=== PATIENT | female | born 1955 | race Caucasian/White ===

== ENCOUNTER 2017-12-17 01:33 | Day surgery (SDC) | payer OTHER ==
[2017-12-17] VITALS (8 sets, daily range): BP systolic 89–125; BP diastolic 53–82
[~2017-12-17] VITALS: Ht 162.6 cm; Wt 73.5 kg
[~2017-12-17 01:33] MED LIST: ALL-DPT PO; ASCO100T PO; BIRTH CONTROL; CALC600T72 PO; GLUC1TAB13 PO; MOME17SP9 NS; MULT1CAP41 PO
[2017-12-17] MEDS ORDERED: PROPOFOL EMUL(*) 10MG/ML 20 ML 40 ML ONE (07:26)
[2017-12-17] MEDS ORDERED: MIDAZOLAM 2 MG/2 ML VIAL IVP ONE (12:00)
[2017-12-17] MEDS ORDERED: NORMOSOL R SOLN(*) 1000 ML BAG 1,000 ML IV PRN (12:00)
[2017-12-17] MEDS ORDERED: LIDOCAINE/SOD BICARB 8.4% SYR ID ONE (12:00)
== END 2017-12-17 14:25 | disposition home or self-care (01) ==
LOC: OR 01:33
PROVIDERS: ATTEND Internal Medicine Gastroenterology
DX: Z12.11 Encounter for screening for malignant neoplasm of colon (principal); K63.5 Polyp of colon; K64.8 Other hemorrhoids
CPT/HCPCS: 00811; 45385; 88305; J2704

== ENCOUNTER → 2018-04-07 | Outpatient (CLI) | payer OTHER ==
--- NOTE | 2018-04-08 11:55 | RADIOLOGY IMAGING REPORT ---
FACILITY: [facility] PATIENT NAME: JANICE ARANDA : [id number] MR: [id number] V: [id number] EXAM DATE: ORDERING PHYSICIAN: GALDINO BECKER TECHNOLOGIST: Anna Holcomb PROCEDURE:BILATERAL DIGITAL SCREENING MAMMOGRAM WITH CAD ASSISTED INTERPRETATION & 3D TOMOSYNTHESIS COMPARISON:Prior mammograms 04/06/17, 02/11/16, 01/24/15, 11/04/13, 05/13/12, 04/21/11. INDICATIONS:SCREENING FINDINGS: A small amount of fibroglandular tissue is seen throughout the breasts. The parenchymal pattern has remained stable allowing for difference in mammographic technique & patient positioning. There is no evidence of malignant appearing mass, malignant appearing calcifications or other secondary sign of malignancy in either breast. DIAGNOSTIC CATEGORY 1--NEGATIVE. RECOMMENDATIONS: ROUTINE MAMMOGRAM AND CLINICAL EVALUATION. IMPRESSION: BIRADS 1: Negative. No significant abnormality is seen. Dictated by: Beatriz Nelson M.D. on 04/07/2018 at 16:18 Transcribed by: ROGER on 04/08/2018 at 8:19 Approved by: Beatriz Nelson M.D. on 04/08/2018 at 11:54 [facility]
== END ==
LOC: MAMO 01:33
PROVIDERS: ATTEND Family Medicine
DX: Z12.31 Encounter for screening mammogram for malignant neoplasm of breast (principal)
CPT/HCPCS: 77063; 77067

== ENCOUNTER → 2018-09-24 | Outpatient (CLI) | payer OTHER ==
--- NOTE | 2018-09-24 12:03 | RADIOLOGY IMAGING REPORT ---
FACILITY: [facility] PATIENT NAME: Cathie Denis : 1955 MR: [id number] V: [id number] EXAM DATE: ORDERING PHYSICIAN: GALDINO BECKER TECHNOLOGIST: Location: [facility] Patient: Cathie Denis : 1955 Visit/Account:[id number] Date of Sevice: 09/24/2018 LIVER HISTORY: Elevated LFTs COMPARISON: Color ultrasound October 09, 2010 FINDINGS: Gallbladder: Unremarkable; no stones or sludge. Liver: Negative. Common duct: Normal, 4.3 mm diameter. Pancreas: Partially obscured by bowel, visualized aspects unremarkable. Right kidney: There appears to be cortical thinning of the right kidney. Right kidney measures 10.2 cm in length Upper abdominal aorta and IVC: Patent. Ascites: None visualized. IMPRESSION: There appears to be cortical thinning of the right kidney otherwise unremarkable right upper quadrant ultrasound Report Dictated By: Beatriz Nelson MD at 09/24/2018 11:58 AM Report E-Signed By: Beatriz Nelson MD at 09/24/2018 12:00 PM WSN:[id number]
== END ==
LOC: US 07:42
PROVIDERS: ATTEND Family Medicine
DX: R94.5 Abnormal results of liver function studies (principal)
CPT/HCPCS: 76705

== ENCOUNTER → 2019-05-03 | Outpatient (CLI) | payer OTHER ==
--- NOTE | 2019-05-04 15:56 | RADIOLOGY IMAGING REPORT ---
FACILITY: [facility] [place] PATIENT NAME: JANICE ARANDA : [id number] MR: [id number] V: [id number] EXAM DATE: [id number] ORDERING PHYSICIAN: GALDINO BECKER TECHNOLOGIST: Carol Ann Valdovinos PROCEDURE: BILATERAL DIGITAL SCREENING MAMMOGRAM WITH CAD ASSISTED INTERPRETATION & 3D TOMOSYNTHESIS. REASON FOR STUDY: Screening. COMPARISON: 04/07/2018 & 04/06/2017. VIEWS OBTAINED: 2D & 3D full field CC & MLO projections. BREAST DENSITY: Breast tissue demonstrates scattered fibroglandular tissue elements. MAMMOGRAM FINDINGS: There is no suspicious mass, calcification, or architectural distortion. IMPRESSION: BIRADS 1: Negative. DIAGNOSTIC CATEGORY 1--NEGATIVE. RECOMMENDATIONS: ROUTINE MAMMOGRAM AND CLINICAL EVALUATION IN 1YR. Dictated by: Abhi Tse M.D. on 05/04/2019 at 13:14 Transcribed by: ROGER on 05/04/2019 at 14:40 Approved by: Abhi Tse M.D. on 05/04/2019 at 15:51 [facility]
== END ==
LOC: MAMO 02:12
PROVIDERS: ATTEND Family Medicine
DX: Z12.31 Encounter for screening mammogram for malignant neoplasm of breast (principal)
CPT/HCPCS: 77063; 77067